=== PATIENT | female | born 2000 | race Caucasian/White ===

== ENCOUNTER 2021-08-20 15:48 | Emergency (ER) | payer SELFPAY ==
[2021-08-20 15:54] VITALS: BP 102/64; PULSE 85; TEMP 98; BMI 21.3
[2021-08-20 18:05] LABS: BASO % 0.5 % (0-2.0); EOS % 0.4 % (0-4.5); HEMATOCRIT 37.2 % (32.4-45.2); HEMOGLOBIN 12.4 GM/dL (10.7-15.3); LYMPH % 27.3 % (8-40); MCH 29.3 pg (25.7-33.7); MCHC 33.3 g/dl (32.0-36.0); MEAN CELL VOLUME 87.9 fl (80-96); MEAN PLT VOLUME 9.7 fl (7.5-11.1); MONO % 7.8 % (3.8-10.2); PLATELET COUNT 208 10^3/uL (134-434); RBC 4.23 M/mm3 (3.60-5.2); WHITE BLOOD COUNT 6.7 K/mm3 (4.0-10.0)
[2021-08-20 18:07] LABS: URINE APPEARANCE CLEAR; URINE BILIRUBIN NEGATIVE (NEGATIVE); URINE COLOR YELLOW; URINE GLUCOSE (UA) NEGATIVE (NEGATIVE); URINE KETONE TRACE (NEGATIVE); URINE LEUK ESTERASE NEGATIVE (NEGATIVE); URINE NITRITE NEGATIVE (NEGATIVE); URINE PROTEIN NEGATIVE (NEGATIVE)
[2021-08-20 18:36] LABS: BLOOD UREA NITROGEN 15.8 mg/dL (7-18); CALCIUM 8.8 mg/dL (8.5-10.1)
[2021-08-20 18:39] LABS: CREATININE 0.7 mg/dL (0.55-1.3)
[2021-08-20 18:41] LABS: BILIRUBIN,TOTAL 0.3 mg/dL (0.2-1); TOT PROT 7.2 g/dl (6.4-8.2)
== END 2021-08-20 20:48 | disposition left against medical advice (07) ==
LOC: JER 15:48
DX: R10.9 Unspecified abdominal pain (principal)
CPT/HCPCS: 36415; 80053; 81003; 84702; 85025; 86850; 86900; 86901; 87086; 99283-25